=== PATIENT | male | born 1995 ===

== ENCOUNTER 2019-06-27 07:24 | Emergency (ER) | payer SELFPAY ==
[2019-06-27] MEDS ORDERED: CYCLOBENZAPRINE 10 MG TAB PO ONE (09:28)
[2019-06-27] MEDS ORDERED: dexAMETHasone 20 MG/5 ML VIAL IM ONE (09:28)
--- NOTE | 2019-06-27 09:44 | Emergency Department Report ---
ED Back Pain/Injury HPI - General Chief Complaint: Back Pain/Injury Stated Complaint: LOWER BACK PAIN Time Seen by Provider: 06/27/19 08:40 Source: patient Limitations: No Limitations - History of Present Illness Initial Comments: patient is a 24-year-old male presents emergency room with complaints of right lower back pain that began this morning. He states that the pain woke him out of his sleep. He states that when the pain became uncomfortable it caused him to become nauseous. He states that he has pain with walking on his right leg. He states the pain radiates down his right leg. he states that his right leg feels weak secondary to the pain, but is still ambulatory with normal gait. He denies any fall or injury. He denies any heavy lifting. He states he has never had this before. He denies any dark urine, dysuria, difficulty urinating, numbness,bowel or bladder incontinence, saddle numbness. He denies any past medical history or allergies medications. He endorses marijuana use. He states that he drinks socially. - Related Data Previous Rx's Medication Instructions Recorded Last Taken Type Ondansetron [Zofran Odt] 4 mg PO Q8HR PRN #10 tab.rapdis 06/27/19 Unknown Rx Tamsulosin [Flomax] 0.4 mg PO QDAY #5 cap 06/27/19 Unknown Rx traMADoL [Ultram 50 MG tab] 50 mg PO Q6HR PRN #7 tablet 06/27/19 Unknown Rx Allergies Allergy/AdvReac Type Severity Reaction Status Date / Time No Known Allergies Allergy Unverified 06/27/19 07:25 ED Review of Systems ROS: Stated complaint: LOWER BACK PAIN Other details as noted in HPI Comment: All other systems reviewed and negative ED Past Medical Hx - Past Medical History Previous Medical History?: No - Surgical History Past Surgical History?: No - Social History Smoking Status: Current Every Day Smoker Substance Use Type: None - Medications Home Medications: Home Medications Medication Instructions Recorded Confirmed Last Taken Type Ondansetron [Zofran Odt] 4 mg PO Q8HR PRN #10 tab.rapdis 06/27/19 Unknown Rx Tamsulosin [Flomax] 0.4 mg PO QDAY #5 cap 06/27/19 Unknown Rx traMADoL [Ultram 50 MG tab] 50 mg PO Q6HR PRN #7 tablet 06/27/19 Unknown Rx ED Physical Exam - General Limitations: No Limitations General appearance: alert, in no apparent distress - Head Head exam: Present: atraumatic, normocephalic - Eye Eye exam: Present: normal appearance - ENT ENT exam: Present: mucous membranes moist - Respiratory Respiratory exam: Present: normal lung sounds bilaterally. Absent: respiratory distress, wheezes, rales, rhonchi, stridor, chest wall tenderness, accessory mus mayi use, decreased breath sounds, prolonged expiratory - Cardiovascular Cardiovascular Exam: Present: normal rhythm, bradycardia (mild), normal heart sounds. Absent: systolic murmur, diastolic murmur, rubs, gallop - Back Exam Back exam: Present: normal inspection, full ROM, CVA tenderness (R), paraspinal tenderness (right lumbar paraspinal TTP, no midline C-spine, T-spine, or L-spine tenderness, no step offs, no deformities). Absent: CVA tenderness (L), vertebral tenderness - Neurological Exam Neurological exam: Present: alert, oriented X3, CN II-XII intact, normal gait, other (equal highway maintenance supervisor strength, 5/5 strength in the BUE/BLE, sensation intact throughout, no focal neuro deficit). Absent: motor sensory deficit - Psychiatric Psychiatric exam: Present: normal affect, normal mood - Skin Skin exam: Present: warm, dry, intact ED Course Vital Signs 06/27/19 06/27/19 07:28 12:41 Temperature 98.3 F 98.5 F Pulse Rate 54 L 56 L Respiratory 16 16 Rate Blood Pressure 125/83 Blood Pressure 108/73 [Left] O2 Sat by Pulse 98 98 Oximetry ED Medical Decision Making - Lab Data Result diagrams: 06/27/19 12:26 06/27/19 12:26 Lab Results 06/27/19 06/27/19 06/27/19 Range/Units 09:47 12:26 12:26 WBC 7.2 (4.5-11.0) K/mm3 RBC 5.32 H (3.65-5.03) M/mm3 Hgb 14.0 (11.8-15.2) gm/dl Hct 42.1 (35.5-45.6) % MCV 79 L (84-94) fl MCH 26 L (28-32) pg MCHC 33 (32-34) % RDW 13.7 (13.2-15.2) % Plt Count 255 (140-440) K/mm3 Lymph % (Auto) 11.4 L (13.4-35.0) % [place] % (Auto) 11.2 H (0.0-7.3) % Eos % (Auto) 1.0 (0.0-4.3) % Baso % (Auto) 0.4 (0.0-1.8) % Lymph # 0.8 L (1.2-5.4) K/mm3 [place] # 0.8 (0.0-0.8) K/mm3 Eos # 0.1 (0.0-0.4) K/mm3 Baso # 0.0 (0.0-0.1) K/mm3 Seg Neutrophils % 76.0 H (40.0-70.0) % Seg Neutrophils # 5.4 (1.8-7.7) K/mm3 Sodium 141 (137-145) mmol/L Potassium 4.5 (3.6-5.0) mmol/L Chloride 102.9 (98-107) mmol/L Carbon Dioxide 24 (22-30) mmol/L Anion Gap 19 mmol/L BUN 12 (9-20) mg/dL Creatinine 0.7 L (0.8-1.5) mg/dL Estimated GFR > 60 ml/min BUN/Creatinine Ratio 17 % Glucose 106 H (75-100) mg/dL Calcium 9.8 (8.4-10.2) mg/dL Total Bilirubin 0.70 (0.1-1.2) mg/dL AST 21 (5-40) units/L ALT 24 (7-56) units/L Alkaline Phosphatase 78 (35-129) units/L Total Protein 7.8 (6.3-8.2) g/dL Albumin 4.4 (3.9-5) g/dL Albumin/Globulin Ratio 1.3 % Urine Color Straw (Yellow) Urine Turbidity Slightly cloudy (Clear) Urine pH 6.0 (5.0-7.0) Ur Specific [place] 1.020 (1.003-1.030) Urine Protein 30 mg/dl (Negative) mg/dL Urine Glucose (UA) Negative (Negative) mg/dL Urine Ketones Negative (Negative) mg/dL Urine Blood Moderate A (Negative) Urine Nitrite Negative (Negative) Urine Bilirubin Negative (Negative) Urine Urobilinogen 2.0 (<2.0) mg/dL Urine WBC (Auto) 15.0 H (0.0-6.0) /HPF Urine RBC (Auto) 35.0 (0.0-6.0) /HPF U Epithel Cells (Auto) 5.0 (0-13.0) /HPF Urine Mucus Few /HPF - Radiology Data Radiology results: report reviewed LUMBOSACRAL SPINE 3 VIEWS INDICATION / CLINICAL INFORMATION: Lower back pain radiating down the right leg. COMPARISON: None available. FINDINGS: BONES / JOINT(S): There is a transitional lumbosacral segment with what appears to be partial lumbarization of S1. There is mild lumbar dextroscoliosis. The vertebral body heights and disc spaces are well-maintained. The pedicles are intact and the SI joints are normal. There is no evidence of fracture subluxation or destructive lesion. SOFT TISSUES: No significant abnormality. ADDITIONAL FINDINGS: None. Signer Name: Tomas Whitlock MD Signed: 06/27/2019 10:27 AM Workstation Name: [id number] Transcribed By: RT Dictated By: Tomas Whitlock MD Electronically Authenticated By: Tomas Whitlock MD Signed Date/Time: 06/27/19 1027 DD/ 1025 TD/TT: CT ABDOMEN AND PELVIS WITHOUT CONTRAST HISTORY: right sided back pain, hematuria. COMPARISON: None. TECHNIQUE: CT images of the abdomen and pelvis were obtained without administration of intravenous contrast. All CT scans at this location are performed using CT dose reduction for ALARA by means of automated exposure control. FINDINGS: Lungs/bones: Lung bases are clear. There are scoliotic changes in the spine with transitional L5 vertebral body on the left. Abdomen/pelvis: There is a 2 mm stone in the mid right ureter with mild upstream hydronephrosis and surrounding inflammatory change. Additional punctate nonobstructive nephrolithiasis is seen in the midpole the right kidney. No stone disease on the left. No mass or cyst. The liver is mildly enlarged but otherwise unremarkable. The gallbladder, spleen, pancreas, adrenals, and proximal GI tract appear unremarkable. Urinary bladder and prostate are unremarkable with no pelvic free fluid or acute colonic abnormality. IMPRESSION: 1. 2 mm stone in the mid right ureter with mild resultant hydronephrosis. Signer Name: Venu Ahumada MD Signed: 06/27/2019 1:45 PM Workstation Name: [id number] Transcribed By: ANITA Dictated By: Venu Ahumada MD Electronically Authenticated By: Venu Ahumada MD Signed Date/Time: 06/27/191344 DD/ 41 TD/TT: - Medical Decision Making patient is a 24-year-old male presents emergency room with complaints of right lower back pain that began this morning. He states that the pain woke him out of his sleep. He states that when the pain became uncomfortable it caused him to become nauseous. He states that he has pain with walking on his right leg. He states the pain radiates down his right leg. he states that his right leg feels weak secondary to the pain, but is still ambulatory with normal gait. He denies any fall or injury. He denies any heavy lifting. He states he has never had this before. He denies any dark urine, dysuria, difficulty urinating, numbness,bowel or bladder incontinence, saddle numbness. He denies any past medical history or allergies medications. He endorses marijuana use. He states that he drinks socially. VSS. on exam: right lumbar paraspinal TTP, no midline C-spine, T-spine, or L-spine tenderness, no step offs, no deformities, right CVAT. XR L spine: There is a transitional lumbosacral segment with what appears to be partial lumbarization of S1. There is mild lumbar dextroscoliosis. The vertebral body heights and disc spaces are well-maintained. The pedicles are intact and the SI joints are normal. There is no evidence of fracture subluxation or destructive lesion. SOFT TISSUES: No significant abnormality. UA shows RBCs, WBCs, and some protein. no nitrites, not having urinary symptoms most likely contamination with RBCs. given RBCs and flank pain, basic labs and CT ordered. labs are stable. CT abd pelvis without contrast: 1. 2 mm stone in the mid right ureter with mild resultant hydronephrosis. pt given pain medications and IVFs and symptoms improved. given prescriptions for tramadol, zofran, and flomax. advised pt to please take medication as prescribed. do not drive or operate heavy machinery while taking pain medication. increase your water intake over the next several days. follow up with a primary care doctor and a urologist. return to the e mergency room for any new or worsening symptoms. - Differential Diagnosis strain, HAROON, neprolithiasis/hydronephrosis/pyelonephritis, bulging disc Critical care attestation.: If time is entered above; I have spent that time in minutes in the direct care of this critically ill patient, excluding procedure time. ED Disposition Clinical Impression: Nephrolithiasis Right-sided back pain Qualifiers: Back pain location: low back pain Chronicity: acute Sciatica presence: without sciatica Qualified Code(s): M54.5 - Low back pain Hematuria Qualifiers: Hematuria type: unspecified type Qualified Code(s): R31.9 - Hematuria, unspecified Disposition: TO HOME OR SELFCARE Is pt being admited?: No Does the pt Need Aspirin: No Condition: Stable Instructions: Kidney Stones (ED) Additional Instructions: please take medication as prescribed. do not drive or operate heavy machinery while taking pain medication. increase your water intake over the next several days. follow up with a primary care doctor and a urologist. return to the emergency room for any new or worsening symptoms. Prescriptions: Tamsulosin [Flomax] 0.4 mg PO QDAY #5 cap traMADoL [Ultram 50 MG tab] 50 mg PO Q6HR PRN #7 tablet PRN Reason: Pain , Severe (7-10) Ondansetron [Zofran Odt] 4 mg PO Q8HR PRN #10 tab.rapdis PRN Reason: nausea Referrals: TAYLOR GLASGOW MD [Staff Physician] - 2-3 Days KHANG ALONSO MD [Staff Physician] - 2-3 Days [facility] [Provider Group] - 2-3 Days [facility] [Outside] - 2-3 Days Time of Disposition: 14:18 Print Language: NIGERIEN
--- NOTE | 2019-06-27 10:31 | XRay Report ---
LUMBOSACRAL SPINE 3 VIEWS INDICATION / CLINICAL INFORMATION: Lower back pain radiating down the right leg. COMPARISON: None available. FINDINGS: BONES / JOINT(S): There is a transitional lumbosacral segment with what appears to be partial lumbari zation of S1. There is mild lumbar dextroscoliosis. The vertebral body heights and disc spaces are we ll-maintained. The pedicles are intact and the SI joints are normal. There is no evidence of fracture subluxation or destructive lesion. SOFT TISSUES: No significant abnormality. ADDITIONAL FINDINGS: None. Signer Name: Tomas Whitlock MD Signed: 06/27/2019 10:27 AM Workstation Name: [id number]
[2019-06-27 11:36] LABS: Bilirubin,Urine Negative (Negative); Color,Urine Straw (Yellow)
[2019-06-27 11:37] LABS: Blood,Urine Moderate (Negative)
[2019-06-27 11:38] LABS: Mucus,Urine Few /HPF
[2019-06-27] MEDS ORDERED: SODIUM CHLORIDE 0.9% 1000 ML 1,000 ML IV ONE (12:11)
[2019-06-27] MEDS ORDERED: ONDANSETRON 4 MG/2 ML INJ IV ONE (12:11)
[2019-06-27] MEDS ORDERED: KETOROLAC 30 MG/1 ML INJ IV ONE (12:11)
[2019-06-27] MEDS ORDERED: MORPHINE 4 MG/1 ML INJ IV ONE (12:11)
[2019-06-27 12:41] LABS: Basophils % (Auto) 0.4 % (0.0-1.8); Eosinophils # (Auto) 0.1 K/mm3 (0.0-0.4); Hematocrit 42.1 % (35.5-45.6); Lymphocytes # (Auto) 0.8 K/mm3 (1.2-5.4); Lymphocytes % (Auto) 11.4 % (13.4-35.0); Mean Corpuscular HGB Conc 33 % (32-34); Mean Corpuscular Volume 79 fl (84-94); Monocytes # (Auto) 0.8 K/mm3 (0.0-0.8); Monocytes % (Auto) 11.2 % (0.0-7.3); Platelet Count 255 K/mm3 (140-440); Red Blood Count 5.32 M/mm3 (3.65-5.03); Red Cell Distribution Width 13.7 % (13.2-15.2)
[2019-06-27 12:42] VITALS: BP 108/73
[2019-06-27 13:06] LABS: Alanine Aminotransferase 24 units/L (7-56); Albumin 4.4 g/dL (3.9-5); BUN/Creatinine Ratio 17; Blood Urea Nitrogen 12 mg/dL (9-20); Calcium 9.8 mg/dL (8.4-10.2); Hemolysis Index 7
--- NOTE | 2019-06-27 13:49 | Cat Scan Report ---
CT ABDOMEN AND PELVIS WITHOUT CONTRAST HISTORY: right sided back pain, hematuria. COMPARISON: None. TECHNIQUE: CT images of the abdomen and pelvis were obtained without administration of intravenous co ntrast. All CT scans at this location are performed using CT dose reduction for ALARA by means of au tomated exposure control. FINDINGS: Lungs/bones: Lung bases are clear. There are scoliotic changes in the spine with transitional L5 ignacio tebral body on the left. Abdomen/pelvis: There is a 2 mm stone in the mid right ureter with mild upstream hydronephrosis and surrounding inflammatory change. Additional punctate nonobstructive nephrolithiasis is seen in the mi dpole the right kidney. No stone disease on the left. No mass or cyst. The liver is mildly enlarged but otherwise unremarkable. The gallbladder, spleen, pancreas, adrenals, and proximal GI tract appear unremarkable. Urinary bladder and prostate are unremarkable with no pelvic free fluid or acute colonic abnormality. IMPRESSION: 1. 2 mm stone in the mid right ureter with mild resultant hydronephrosis. Signer Name: Venu Ahumada MD Signed: 06/27/2019 1:45 PM Workstation Name: [id number]
== END 2019-06-27 14:53 | disposition home or self-care (01) ==
LOC: ED 07:24
DX: N20.0 Calculus of kidney (principal); F17.200 Nicotine dependence, unspecified, uncomplicated; Z79.899 Other long term (current) drug therapy
CPT/HCPCS: 36415; 72100; 74176; 80053; 81001; 85025; 87086; 96372; 96374; 96375; 99284; J1100; J1885; J2270; J2405; J7030